=== PATIENT | male | born 1970 | race Caucasian/White ===

== ENCOUNTER 2016-10-13 16:20 | Emergency (ER) | payer OTHER ==
[~2016-10-13] VITALS: Ht 182.9 cm; Wt 72.6 kg
--- NOTE | ~2016-10-13 | US115 ---
[facility] A Service of [facility] RADIOLOGY TEXT RESULTS PATIENT: LINNETTE LUGO LOCATION: [place] : 74 UNIT #: [id number] AGE: [address]: Indira Guzman SEX: M ORDER DR: [id number] [facility] [address] [place], [place] [address] [id number] E MR#: [id number] Acc #: [id number] NAME: LINNETTE LUGO : 1970 SEX: M STUDY DATE/TIME: 10/13/2016 17:30 UNIT: CFTX ROOM: STUDY DESCRIPTION: US Scrotum and Contents Attending Physician: Indira Guzman P.A.-C. Ordering Physician: Indira Guzman P.A.-C. Primary Care Physician: Primary Care Physician No MEDICAL IMAGING REPORT This report is preliminary unless electronic signature is present EXAM Scrotal and testicular ultrasound with Doppler HISTORY Dysuria and hematuria for 4 days. Right scrotal swelling. FINDINGS Ultrasound examination of the scrotum and testes was performed with rao-scale and Doppler. No testicular mass or enlargement. Normal blood flow to both testes on color Doppler. Right epididymal enlargement with mild associated hypervascularity, suggesting right epididymitis. The left epididymis is unremarkable. Very small bilateral hydroceles. IMPRESSION 1. Findings characteristic of right epididymitis with right epididymal enlargement and mild hypervascularity. 2. No testicular mass or enlargement and blood flow is noted in both testes on color Doppler. 3. Small bilateral hydroceles. Dictated by... Harry Ahn M.D. THIS IS AN ELECTRONICALLY VERIFIED REPORT Harry Ahn M.D. at 10/14/2016 4:29 PM DFL/to TD: 10/13/2016 18:48 JOB #: [id number] MEDICAL IMAGING REPORT [facility] A Service [facility] RADIOLOGY TEXT RESULTS PATIENT: LINNETTE LUGO LOCATION: [place] : 74 UNIT #: [id number] AGE: [address]: Indira Guzman SEX: M ORDER DR: Page 1 of 1 COPY
[2016-10-13 18:34] LABS: URINE SOURCE CLEAN CATCH
[2016-10-13 18:39] LABS: URINE APPEARANCE HAZY; URINE BILIRUBIN NEG (NEG); URINE BLOOD 3+ (NEG); URINE COLOR YELLOW; URINE GLUCOSE NORM (NORM); URINE KETONE NEG (NEG); URINE LEUKOCYTE ESTERASE 3+ (NEG); URINE NITRATE NEG (NEG); URINE PROTEIN 1+ (NEG); URINE SPECIFIC GRAVITY 1.015 (1.003-1.035); URINE UROBILINOGEN 4 MG/DL (NORM)
[2016-10-13 18:48] LABS: CULTURE INDICATED? YES; URINE BACTERIA AUWI 1+ (NEGATIVE); URINE SQUAMOUS EPITHELIAL CELL FEW /[HPF]; UWBCS1 AUWI 25-50 (0-5)
[2016-10-13 18:49] LABS: URINE MUCUS PRESENT
[2016-10-16 14:07] LABS: CHLAMYDIA TRACH Not Detected (Not Detected); N GONOR Detected (Not Detected)
== END 2016-10-13 19:20 | disposition home or self-care (01) ==
LOC: CFTX 16:20 → CED 16:20 → CFTX 17:06
PROVIDERS: Physician Assistant
DX: A56.01 Chlamydial cystitis and urethritis (principal); N45.1 Epididymitis; K75.9 Inflammatory liver disease, unspecified
CPT/HCPCS: 76870; 81003; 87086; 87491; 87591; 96372; 99284; J0696